=== PATIENT | male | born 1955 | race Caucasian/White ===

== ENCOUNTER 2020-06-11 19:24 | Inpatient (IN) | payer MEDICARE, OTHER ==
[~2020-06-11 19:24] MED LIST: COMBIVENT RESPIM4 GM INH; MEDROL 4MG DOSEP4 MG PO; TAMIFLU 75MG CA75 MG PO
[2020-06-11 20:30] LABS: BASOPHIL 0 % (0-2); EOSINOPHIL 1.5 % (0-7); HCT 26.6 % (42.0-52.0); HGB 8.7 g/dl (13.2-18.0); LYMPHOCYTE 34.3 % (15-48); MCH 32.5 pg (25.0-31.0); MCHC 32.7 g/dL (32.0-36.0); MCV 99.3 fL (78.0-100.0); MPV 9.7 fL (6.0-9.5); NRBC 0; PLT 222 K/uL (150-400); RBC 2.68 M/uL (4.70-6.00); RDW 15.1 % (11.5-14.0)
[2020-06-11 20:33] LABS: WBC 0.7 K/uL (4.0-10.5)
[2020-06-11 20:34] LABS: NEUTROPHIL 59.7 % (41-80)
[2020-06-11 20:40] LABS: ALBUMIN 2.4 g/dL (3.4-5.0); BILIRUBIN - TOTAL 1.3 mg/dL (0.2-1.0); CREATININE 0.88 mg/dL (0.67-1.17); GLOBULIN (CALCULATION) 4.8 g/dL; POTASSIUM 4.1 mmol/L (3.5-5.1); TOTAL PROTEIN 7.2 g/dL (6.4-8.2)
[2020-06-11 21:05] LABS: BILIRUBIN 1+ mg/dL (NEGATIVE); BLOOD NEGATIVE Ery/uL (NEGATIVE); CLARITY CLEAR (CLEAR); COLOR YELLOW (YELLOW); GLUCOSE (U) NORMAL (NORMAL); LEUKOCYTES NEGATIVE Leu/uL (NEGATIVE); NITRITE NEGATIVE (NEGATIVE); PROTEIN TRACE (LOW) mg/dL (NEGATIVE); SPECIFIC GRAVITY 1.025 (1.001-1.030); UROBILINOGEN >=8.0 mg/dL (0.2-1.0)
[2020-06-11 21:17] LABS: PRO-BNP 214 pg/mL (<125)
[2020-06-12 02:28] LABS: BUN/CREAT RATIO (CALC) 17.9 RATIO; CREATININE 0.84 mg/dL (0.67-1.17)
[2020-06-12 06:17] LABS: BUN/CREAT RATIO (CALC) 18.2 RATIO; CREATININE 0.77 mg/dL (0.67-1.17); MAGNESIUM 2.2 mg/dL (1.8-2.4); POTASSIUM 4.1 mmol/L (3.5-5.1)
[2020-06-12 10:00] LABS: BASOPHIL 0 % (0-2); EOSINOPHIL 3.5 % (0-7); HCT 25.5 % (42.0-52.0); HGB 8.1 g/dl (13.2-18.0); LYMPHOCYTE 43.9 % (15-48); MCH 32.3 pg (25.0-31.0); MCHC 31.8 g/dL (32.0-36.0); MCV 101.6 fL (78.0-100.0); MONOCYTE 1.8 % (0-12); MPV 9.6 fL (6.0-9.5); NEUTROPHIL 50.8 % (41-80); NRBC 0; PLT 202 K/uL (150-400); RBC 2.51 M/uL (4.70-6.00); RDW 15.2 % (11.5-14.0); RETICULOCYTE COUNT 0.8 % (1.0-2.0)
[2020-06-12 10:11] LABS: WBC 0.6 K/uL (4.0-10.5)
[2020-06-12 10:21] LABS: IRON % SATURATION 31.1 %SAT (20-50)
[2020-06-12 10:27] LABS: TOTAL CELL COUNT 10
[2020-06-12 10:28] LABS: ANISOCYTOSIS SLIGHT; EOSINOPHIL(M) 10 % (0-7); LYMPHOCYTE(M) 50 % (15-48); NEUTROPHILS(M) 40 % (41-80); PLATELET ESTIMATE NORMAL; PLATELET MORPHOLOGY SATTELLITISM
[2020-06-12 10:54] LABS: ALBUMIN 2.2 g/dL (3.4-5.0); BILIRUBIN - TOTAL 0.6 mg/dL (0.2-1.0); BUN/CREAT RATIO (CALC) 16.9 RATIO; CREATININE 0.77 mg/dL (0.67-1.17); FOLIC ACID (SERUM) 13.2 ng/mL (8.6-58.9); GLOBULIN (CALCULATION) 4.3 g/dL; MAGNESIUM 2.3 mg/dL (1.8-2.4); PHOSPHORUS 2.8 mg/dL (2.6-4.7); TOTAL PROTEIN 6.5 g/dL (6.4-8.2)
--- NOTE | 2020-06-12 16:21 | NUR ---
CALLED [facility] FOR LAB RECORDS, [facility] CALLED BACK TO SAY THEY HAD NO RECORDS SINCE 2019 FOR LABS
[2020-06-13 06:24] LABS: BASOPHIL 0 % (0-2); EOSINOPHIL 3.1 % (0-7); HCT 24.6 % (42.0-52.0); HGB 7.6 g/dl (13.2-18.0); LYMPHOCYTE 54.7 % (15-48); MCH 31.9 pg (25.0-31.0); MCHC 30.9 g/dL (32.0-36.0); MCV 103.4 fL (78.0-100.0); MONOCYTE 1.6 % (0-12); MPV 9.5 fL (6.0-9.5); NEUTROPHIL 40.6 % (41-80); NRBC 0; PLT 209 K/uL (150-400); RBC 2.38 M/uL (4.70-6.00); RDW 15.3 % (11.5-14.0)
[2020-06-13 06:39] LABS: WBC 0.6 K/uL (4.0-10.5)
[2020-06-13 06:46] LABS: TOTAL CELL COUNT 10
[2020-06-13 06:47] LABS: ALBUMIN 2.1 g/dL (3.4-5.0); BILIRUBIN - TOTAL 0.6 mg/dL (0.2-1.0); BUN/CREAT RATIO (CALC) 9.1 RATIO; C-REACTIVE PROTEIN 16.4 mg/dL (<=0.90); CREATININE 0.77 mg/dL (0.67-1.17); GLOBULIN (CALCULATION) 4.1 g/dL; MAGNESIUM 2.3 mg/dL (1.8-2.4); PHOSPHORUS 3.3 mg/dL (2.6-4.7); TOTAL PROTEIN 6.2 g/dL (6.4-8.2)
[2020-06-13 06:50] LABS: NEUTROPHILS(M) 60 % (41-80)
[2020-06-13 06:51] LABS: EOSINOPHIL(M) 10 % (0-7); LYMPHOCYTE(M) 30 % (15-48); PLATELET ESTIMATE NORMAL; PLATELET MORPHOLOGY NORMAL
[2020-06-13 06:57] LABS: PRO-BNP 349 pg/mL (<125)
[2020-06-14 06:47] LABS: BASOPHIL 0 % (0-2); EOSINOPHIL 3.1 % (0-7); HCT 23.8 % (42.0-52.0); HGB 7.3 g/dl (13.2-18.0); LYMPHOCYTE 54.7 % (15-48); MCHC 30.7 g/dL (32.0-36.0); MCV 104.4 fL (78.0-100.0); MONOCYTE 1.6 % (0-12); MPV 9.4 fL (6.0-9.5); NEUTROPHIL 40.6 % (41-80); NRBC 0; PLT 203 K/uL (150-400); RBC 2.28 M/uL (4.70-6.00); RDW 15.2 % (11.5-14.0)
[2020-06-14 07:18] LABS: BAND 6 % (0-10); EOSINOPHIL(M) 2 % (0-7); LYMPHOCYTE(M) 42 % (15-48); NEUTROPHILS(M) 48 % (41-80); PLATELET ESTIMATE NORMAL; TOTAL CELL COUNT 50; VARIANT LYMPHOCYTE 2
[2020-06-14 07:19] LABS: PLATELET MORPHOLOGY NORMAL
[2020-06-14 07:20] LABS: WBC 0.6 K/uL (4.0-10.5)
[2020-06-14 07:23] LABS: ALBUMIN 2.1 g/dL (3.4-5.0); BILIRUBIN - TOTAL 0.7 mg/dL (0.2-1.0); BUN/CREAT RATIO (CALC) 6.6 RATIO; CREATININE 0.76 mg/dL (0.67-1.17); MAGNESIUM 2.1 mg/dL (1.8-2.4); PHOSPHORUS 3.1 mg/dL (2.6-4.7); POTASSIUM 3.8 mmol/L (3.5-5.1); TOTAL PROTEIN 6.1 g/dL (6.4-8.2)
[2020-06-15 05:12] LABS: HCT 23.7 % (42.0-52.0); HGB 7.4 g/dl (13.2-18.0); MCH 31.8 pg (25.0-31.0); MCHC 31.2 g/dL (32.0-36.0); MCV 101.7 fL (78.0-100.0); MPV 10.3 fL (6.0-9.5); RBC 2.33 M/uL (4.70-6.00)
[2020-06-15 05:17] LABS: WBC 0.5 K/uL (4.0-10.5)
[2020-06-15 05:51] LABS: BUN/CREAT RATIO (CALC) 7.2 RATIO; CREATININE 0.69 mg/dL (0.67-1.17); POTASSIUM 3.5 mmol/L (3.5-5.1)
[2020-06-15] MEDS ORDERED: HABITROL14 MG TD (14:15)
[2020-06-15] MEDS ORDERED: AUGMENTIN 875-1 EACH PO (14:27)
[2020-06-28] MEDS ORDERED: ULTRAM50 MG PO (08:28)
== END 2020-06-15 16:45 | disposition home or self-care (01) | DRG 181 ==
LOC: FER 19:24 → FMS 06-12 00:11
PROVIDERS: Hospitalist; Physician Assistant; ADMIT Internal Medicine
DX: C34.90 Malignant neoplasm of unspecified part of unspecified bronchus or lung (principal); C77.1 Secondary and unspecified malignant neoplasm of intrathoracic lymph nodes; D61.818 Other pancytopenia; Z20.822 Contact with and (suspected) exposure to COVID-19; N40.0 Benign prostatic hyperplasia without lower urinary tract symptoms; I10 Essential (primary) hypertension; D70.9 Neutropenia, unspecified; D50.9 Iron deficiency anemia, unspecified; R59.0 Localized enlarged lymph nodes; E86.0 Dehydration; J44.9 Chronic obstructive pulmonary disease, unspecified; F17.210 Nicotine dependence, cigarettes, uncomplicated; Z63.5 Disruption of family by separation and divorce
CPT/HCPCS: 36415; 71045; 71260; 80048; 80053; 81003; 82550; 82607; 82728; 82746; 83010; 83540; 83550; 83605; 83690; 83735; 83880; 84100; 84145; 84484; 85025; 86140; 86880; 93005; 94010; J0696; J1450; J1650; J2405; J2543; J7030; J7050; Q9967; U0002

== ENCOUNTER → 2020-06-28 | Day surgery (SDC) | payer MEDICARE, OTHER ==
[~2020-06-28] MED LIST changes: +AUGMENTIN 875-1 EACH PO; +BACTRIM DS TAB1 EACH PO; +DIFLUCAN 100MG100 MG PO; +HABITROL14 MG TD; +ULTRAM50 MG PO; +ZOVIRAX200 MG PO
[2020-06-28 09:04] LABS: HCT 25.4 % (42.0-52.0); HGB 7.8 g/dl (13.2-18.0); MCH 31.8 pg (25.0-31.0); MCHC 30.7 g/dL (32.0-36.0); MCV 103.7 fL (78.0-100.0); RBC 2.45 M/uL (4.70-6.00); RDW 16.8 % (11.5-14.0)
[2020-06-28 09:18] LABS: WBC 0.5 K/uL (4.0-10.5)
[2020-06-28 09:25] LABS: ALBUMIN 2.1 g/dL (3.4-5.0); BILIRUBIN - TOTAL 0.9 mg/dL (0.2-1.0); CREATININE 0.82 mg/dL (0.67-1.17); GLOBULIN (CALCULATION) 4.5 g/dL; POTASSIUM 4.1 mmol/L (3.5-5.1); TOTAL PROTEIN 6.6 g/dL (6.4-8.2)
== END | disposition home or self-care (01) ==
LOC: FAS 07:37
PROVIDERS: Internal Medicine Hematology & Oncology; Surgery
DX: C91.40 Hairy cell leukemia not having achieved remission (principal); D72.819 Decreased white blood cell count, unspecified; D53.9 Nutritional anemia, unspecified; F17.210 Nicotine dependence, cigarettes, uncomplicated; E78.00 Pure hypercholesterolemia, unspecified; M19.90 Unspecified osteoarthritis, unspecified site; Z98.890 Other specified postprocedural states; Z80.0 Family history of malignant neoplasm of digestive organs; Z20.822 Contact with and (suspected) exposure to COVID-19
CPT/HCPCS: 36415; 80053; 88305; 88341; 88342; J2704; J7120

== ENCOUNTER 2020-07-01 09:49 | Inpatient (IN) | payer MEDICARE, OTHER ==
[~2020-07-01 09:49] MED LIST changes: -BACTRIM DS TAB1 EACH PO; -DIFLUCAN 100MG100 MG PO; -ZOVIRAX200 MG PO
[2020-07-01 10:47] LABS: BASOPHIL 0 % (0-2); EOSINOPHIL 0 % (0-7); HCT 25.2 % (42.0-52.0); HGB 7.8 g/dl (13.2-18.0); LYMPHOCYTE 40.5 % (15-48); MCH 32.2 pg (25.0-31.0); MCV 104.1 fL (78.0-100.0); MONOCYTE 1.4 % (0-12); MPV 10.5 fL (6.0-9.5); NEUTROPHIL 56.7 % (41-80); NRBC 5.4; PLT 202 K/uL (150-400); RBC 2.42 M/uL (4.70-6.00); RDW 17.3 % (11.5-14.0)
[2020-07-01 11:10] LABS: PRO-BNP 287 pg/mL (<125)
[2020-07-01 11:13] LABS: BILIRUBIN - TOTAL 1.3 mg/dL (0.2-1.0); BUN/CREAT RATIO (CALC) 14.7 RATIO; CREATININE 0.95 mg/dL (0.67-1.17); GLOBULIN (CALCULATION) 4.8 g/dL; POTASSIUM 4.5 mmol/L (3.5-5.1); TOTAL PROTEIN 6.8 g/dL (6.4-8.2)
[2020-07-01 11:23] LABS: WBC 0.7 K/uL (4.0-10.5)
[2020-07-01 12:15] LABS: CORONAVIRUS 2019 SARS-COV-2 NEGATIVE (NEGATIVE); INFLUENZA A NAA NEGATIVE (NEGATIVE)
[2020-07-01] MEDS ORDERED: ZOVIRAX200 MG PO (15:16)
[2020-07-01] MEDS ORDERED: BACTRIM DS TAB1 EACH PO (15:17)
[2020-07-01] MEDS ORDERED: DIFLUCAN 100MG100 MG PO (15:19)
[2020-07-02 00:26] LABS: BILIRUBIN NEGATIVE (NEGATIVE); BLOOD NEGATIVE Ery/uL (NEGATIVE); CLARITY CLEAR (CLEAR); COLOR YELLOW (YELLOW); GLUCOSE (U) NORMAL (NORMAL); LEUKOCYTES NEGATIVE Leu/uL (NEGATIVE); NITRITE NEGATIVE (NEGATIVE); PROTEIN NEGATIVE (NEGATIVE)
[2020-07-02 06:15] LABS: BASOPHIL 0 % (0-2); EOSINOPHIL 3.6 % (0-7); HCT 19.6 % (42.0-52.0); MCH 31.9 pg (25.0-31.0); MCHC 30.6 g/dL (32.0-36.0); MCV 104.3 fL (78.0-100.0); MONOCYTE 3.6 % (0-12); MPV 10.2 fL (6.0-9.5); NEUTROPHIL 42.8 % (41-80); NRBC 0; PLT 133 K/uL (150-400); RBC 1.88 M/uL (4.70-6.00); RDW 17.2 % (11.5-14.0)
[2020-07-02 06:20] LABS: WBC 0.3 K/uL (4.0-10.5)
[2020-07-02 07:05] LABS: CREATININE 0.64 mg/dL (0.67-1.17); POTASSIUM 3.8 mmol/L (3.5-5.1)
--- NOTE | 2020-07-02 09:58 | NUR ---
PT REPORTS HE LIVES WITH SON AND SONS GIRLFRIEND (ETIENNE) HE REPORTS HE HAS A CANE, WALKER AND W/C. HE DID NOT APPEAR INTERESTED IN CONVERSATION ABOUT DISCHARGE PLANS OR NEEDS, HE MADE NO EYE CONTACT HAD YES OR NO ANSWEARS WHEN ASKED ABOUT DME I HAD TO ASK EACH PIECE OF EQUIPMENT AND HE WOULD SAY YES OR NO. HE DID SAY IT WAS OK TO TALK UPON ENTERING ROOM. I WENT TO SPEAK TO NURSING TO SEE IF I WAS MISSING SOMETHING I FEEL LIKE HOME HEALTH WOULD BE A NEED FOR HIM BUT HE DECLINED IT. NURSING SAID HE HAS BEEN VERY SHORT WITH THEM WELL I DID ASK THEM IF SOMETHING CHANGES OR IF HE CHANGES HIS MIND OR BECOMES MORE ENGAGED IN CARE I WOULD BE HAPPY TO COME AND TALK TO HIM AGAIN;
[2020-07-02 15:10] LABS: LYME IGG/IGM AB <0.91 ISR (0.00-0.90)
[2020-07-03 03:51] LABS: BASOPHIL 0 % (0-2); EOSINOPHIL 3.3 % (0-7); HCT 24.3 % (42.0-52.0); HGB 7.6 g/dl (13.2-18.0); LYMPHOCYTE 43.3 % (15-48); MCH 30.5 pg (25.0-31.0); MCHC 31.3 g/dL (32.0-36.0); MCV 97.6 fL (78.0-100.0); MONOCYTE 3.3 % (0-12); MPV 9.8 fL (6.0-9.5); NEUTROPHIL 40.1 % (41-80); NRBC 6.7; PLT 117 K/uL (150-400); RBC 2.49 M/uL (4.70-6.00); RDW 19.1 % (11.5-14.0)
[2020-07-03 03:58] LABS: WBC 0.3 K/uL (4.0-10.5)
[2020-07-03 04:12] LABS: BUN/CREAT RATIO (CALC) 15.3 RATIO; CREATININE 0.59 mg/dL (0.67-1.17); POTASSIUM 3.6 mmol/L (3.5-5.1)
[2020-07-04 05:59] LABS: BASOPHIL 0 % (0-2); EOSINOPHIL 0 % (0-7); HCT 23.4 % (42.0-52.0); HGB 7.4 g/dl (13.2-18.0); LYMPHOCYTE 44.4 % (15-48); MCH 30.8 pg (25.0-31.0); MCHC 31.6 g/dL (32.0-36.0); MCV 97.5 fL (78.0-100.0); MONOCYTE 3.7 % (0-12); MPV 9.9 fL (6.0-9.5); NEUTROPHIL 51.9 % (41-80); NRBC 0; PLT 110 K/uL (150-400); RDW 19.3 % (11.5-14.0)
[2020-07-04 06:02] LABS: WBC 0.3 K/uL (4.0-10.5)
[2020-07-04 06:21] LABS: BUN/CREAT RATIO (CALC) 12.7 RATIO; CREATININE 0.55 mg/dL (0.67-1.17); POTASSIUM 3.3 mmol/L (3.5-5.1)
[2020-07-05 15:09] LABS: E. CHAFFEENSIS (HME) IGG TITER Negative (Neg:<1:64); E. CHAFFEENSIS (HME) IGM TITER Negative (Neg:<1:20); HGE IGG TITER Negative (Neg:<1:64); HGE IGM TITER Negative (Neg:<1:20)
[2020-07-06 06:03] LABS: BASOPHIL 0 % (0-2); EOSINOPHIL 0 % (0-7); HCT 21.5 % (42.0-52.0); HGB 6.9 g/dl (13.2-18.0); LYMPHOCYTE 35.5 % (15-48); MCH 31.7 pg (25.0-31.0); MCHC 32.1 g/dL (32.0-36.0); MCV 98.6 fL (78.0-100.0); MONOCYTE 3.2 % (0-12); MPV 10.4 fL (6.0-9.5); NEUTROPHIL 54.8 % (41-80); PLT 101 K/uL (150-400); RBC 2.18 M/uL (4.70-6.00); RDW 18.4 % (11.5-14.0)
[2020-07-06 06:19] LABS: WBC 0.3 K/uL (4.0-10.5)
[2020-07-06 06:24] LABS: ALBUMIN 1.3 g/dL (3.4-5.0); BILIRUBIN - TOTAL 0.9 mg/dL (0.2-1.0); BUN/CREAT RATIO (CALC) 14.5 RATIO; CREATININE 0.62 mg/dL (0.67-1.17); MAGNESIUM 1.8 mg/dL (1.8-2.4); POTASSIUM 3.8 mmol/L (3.5-5.1); TOTAL PROTEIN 5.3 g/dL (6.4-8.2)
[2020-07-06 06:35] LABS: EOSINOPHIL(M) 5 % (0-7); LYMPHOCYTE(M) 45 % (15-48); NEUTROPHILS(M) 40 % (41-80); NRBC 0; PLATELET ESTIMATE DECREASED; TOTAL CELL COUNT 20; VARIANT LYMPHOCYTE 10
[2020-07-06 06:36] LABS: ANISOCYTOSIS SLIGHT; PLATELET MORPHOLOGY NORMAL
--- NOTE | 2020-07-06 11:55 | NUR ---
07/06/20 1000 ORDER RECEIVED FOR PICC LINE PLACEMENT. RISKS AND BENEFITS EXPLAINED. CONSENT SIGNED. PT'S LEFT UPPER ARM BASILIC VEIN VISUALIZED USING THE SITE RITE 6 ULTRA MACHINE. PT THEN PREPPED AND DRAPED IN STERILE FASHION. THE AREA WAS CLEANSED WITH CHLORAPREP. THE AREA WAS NUMBED WITH 1CC OF 1% LIDOCAINE. A 21GA NEEEDLE WAS USED. GOOD BLOOD RETURN. THE GUIDE WIRE THREADED EASILY. THE NEEDLE WAS REMOVED AND THE SHEATH WAS PLACED OVER THE WIRE. THE WIRE WAS THEN REMOVE AND A CAP WAS PLACED ON THE END. THE PT WAS MEASURED FOR THE PICC PLACEMENT. PICC WAS TRIMMED AT 40 CM AND FLUSHED. THE INTRODUCER WAS REMOVED AND THE PICC CATHETER WAS GUIDED INTO POSITION. THE SHEATH WAS PEELED BACK. A STERILE BIOPATCH WAS PLACED AT THE INSERTION SITE. A STAT LOCK WAS PLACED ON. A STERILE TEGADERM WAS PLACED OVER THE PICC LINE. A STAT PORTABLE CHEST XRAY WAS OBTAINED. PER DR GOMEZ THE PICC LINE IS IN THE SVC. THE STYLET WAS REMOVED AND THE A CLEAR CAP WAS FLUSHED AND PLACED ON THE END. PT HAS A 4 FR SINGLE LUMEN POWER PICC. TRIMMED AT 40 CM, INSERTION 0 CM, BICEPS 33CM. GOOD BLOOD RETURN NOTED. PT TOLERATED WELL. REPORT TO Adis YI RN ON MED SURG.
--- NOTE | 2020-07-06 13:24 | NUR ---
1150 ENTRY LEVEL MARKETING REPRESENTATIVE REPORTS V/S ARE FOLLOW 137/98, HR 132, RESP 40, TEMP 97.3 PATIENT SHAKING SOME MUCH UNABLE TO GET AN O2 SAT. [address] GOMEZ OF THE INCREASED HEARTRATE. NEW ORDERS TO GET A STAT EKG AND PLACE ON TELEMTRY. 1200 EKG DONE HEART RATE 163, TELEMTERY MONITOR [address] DR[address] GOMEZ NOTIFED AGAIN. PLACE ON THE DEFILLBATOR AND PADS ATTACHED TO THE CHEST PRIOR TO GIVING THE ADENOSINE AT THE BEDSIDE. DR. GOMEZ AT THE BEDSIDE AT THIS TIME. NEW ORDERS TO GIVE ADENOSINE IV IN THE ROOM AND TRANSFER TO ICU. 1220 1ST DOSE OF ADENOSINE 6MG IV WAS GIVEN, HR DROPPED FOR ABOUT A SECOND AND JUMP BACK UP TO 155-160. 1222 2ND DOSE OF ADENOSINE 12MG IV WAS GIVEN HEART RATE 92 FOR A SECOND THEN RETURNED TO 159-167. 1225 3RD DOSE OF ADENOSINE 12MG IV WAS GIVEN HEART RATE 110 THEN RETURNED TO 160-170. RAPID RESPONSE CALLED. 1224 B/P 130/98 HR 148 SHAKING HAS SLOWWED DOWN. 1225 B/P RECHECK 128/78 HEART RATE 114 FOR SEVERAL SECONDS THEN RETURNED TO 170. 1229 AMINODARON 150MG IV PUSH WAS GIVEN X 1 HEART RATE 156. 1230 B/P 120/72, HR 152, RESP 32 ON 3L NC 1232 LOPRESSOR 5MG IV WAS GIVEN HEART RATE IN LOW 100'S, STARTING TO MOVE OVER TO ICU. 1233 TANSFER TO ICU 1238 AMINODARON 150MG BOLUS WAS GIVEN OVER IN THE ICU. HEART RATE IS NOW 110-120. 1259 REPORT WAS GIVEN TO DARNELL LORENZO,RN
[2020-07-06 13:31] LABS: BASOPHIL 0 % (0-2); EOSINOPHIL 2.6 % (0-7); HGB 7.6 g/dl (13.2-18.0); LYMPHOCYTE 31.6 % (15-48); MCH 30.8 pg (25.0-31.0); MCHC 31.7 g/dL (32.0-36.0); MCV 97.2 fL (78.0-100.0); MONOCYTE 2.6 % (0-12); MPV 10.4 fL (6.0-9.5); NEUTROPHIL 63.2 % (41-80); NRBC 5.3; PLT 97 K/uL (150-400); RBC 2.47 M/uL (4.70-6.00); RDW 17.9 % (11.5-14.0)
[2020-07-06 13:34] LABS: WBC 0.4 K/uL (4.0-10.5)
[2020-07-06 13:39] LABS: IRON % SATURATION 41.6 %SAT (20-50)
[2020-07-06 13:46] LABS: PRO-BNP 616 pg/mL (<125)
[2020-07-06 14:07] LABS: ALBUMIN 1.4 g/dL (3.4-5.0); BILIRUBIN - TOTAL 1.1 mg/dL (0.2-1.0); CREATININE 0.63 mg/dL (0.67-1.17); GLOBULIN (CALCULATION) 4.2 g/dL; MAGNESIUM 1.8 mg/dL (1.8-2.4); PHOSPHORUS 3.5 mg/dL (2.6-4.7); TOTAL PROTEIN 5.6 g/dL (6.4-8.2)
--- NOTE | 2020-07-06 15:14 | NUR ---
07/06/20 Mr. Robledo and his sister, Nette Hammonds, report plans for Mr. Robledo to go to the home of his daughter, Mackenzie Robledo ([phone]) with at discharge. Mr. Rboledo chose [facility]. Affliation explained. A referral was made to [facility] via [facility]. - Report given to Perri WARP CLAMPER
[2020-07-06 18:10] LABS: HISTOPLASMA GAL'MANNAN AG SER <0.5 (<0.5 ng/mL)
[2020-07-07 04:57] LABS: BASOPHIL 0 % (0-2); EOSINOPHIL 0 % (0-7); HCT 25.5 % (42.0-52.0); HGB 8.1 g/dl (13.2-18.0); LYMPHOCYTE 39.3 % (15-48); MCH 30.8 pg (25.0-31.0); MCHC 31.8 g/dL (32.0-36.0); MONOCYTE 3.6 % (0-12); MPV 10.3 fL (6.0-9.5); NEUTROPHIL 57.1 % (41-80); PLT 81 K/uL (150-400); RBC 2.63 M/uL (4.70-6.00); RDW 18.8 % (11.5-14.0)
[2020-07-07 05:00] LABS: WBC 0.3 K/uL (4.0-10.5)
[2020-07-07 05:14] LABS: BUN/CREAT RATIO (CALC) 16.9 RATIO; CREATININE 0.65 mg/dL (0.67-1.17); MAGNESIUM 1.8 mg/dL (1.8-2.4); POTASSIUM 3.4 mmol/L (3.5-5.1)
[2020-07-07 05:22] LABS: PRO-BNP 622 pg/mL (<125)
[2020-07-07 05:43] LABS: BAND 24 % (0-10); LYMPHOCYTE(M) 40 % (15-48); MONOCYTE(M) 8 % (0-12); NEUTROPHILS(M) 28 % (41-80); TOTAL CELL COUNT 25
[2020-07-07 05:45] LABS: PLATELET ESTIMATE DECREASED; PLATELET MORPHOLOGY NORMAL
[2020-07-07 05:46] LABS: ANISOCYTOSIS SLIGHT; TARGET CELLS RARE
--- NOTE | 2020-07-07 13:30 | NUR ---
PATIENT WITH SEVERE CHILLS, TREMORING, TACYPNIC WITH AUDIBLE WHEEZES. RECTAL TEMP 100.8. HR 140'S. AT BEDSIDE. RT AT BEDSIDE TO GIVE XOPENEX TREATMENT AND EKG. 1430: TEMP 103.6 RECTAL ON RE-CHECK
[2020-07-07 17:11] LABS: FRANCISELLA TULARENSIS IGG Negative (Negative); FRANCISELLA TULARENSIS IGM Negative (Negative)
--- NOTE | 2020-07-08 15:33 | NUR ---
07/08/20 [facility] was informed of patient's transfer to [facility] on 07/07/20.
== END 2020-07-07 22:30 | disposition other institution (70) | DRG 871 ==
LOC: FER 09:49 → FICU 11:35 → FTCU 11:35 → FMS 07-04 09:11 → FICU 07-06 13:07
PROVIDERS: Emergency Medicine; Internal Medicine; ADMIT Internal Medicine
PROC: 8E0ZXY6 Isolation (ICD-10-PCS; 2020-07-01)
PROC: 30233N1 Transfusion of Nonautologous Red Blood Cells into Peripheral Vein, Percutaneous Approach (ICD-10-PCS; principal; 2020-07-02)
PROC: 02HV33Z Insertion of Infusion Device into Superior Vena Cava, Percutaneous Approach (ICD-10-PCS; 2020-07-06)
DX: A41.9 Sepsis, unspecified organism (principal); J18.9 Pneumonia, unspecified organism; J96.01 Acute respiratory failure with hypoxia; C91.40 Hairy cell leukemia not having achieved remission; I47.1 Supraventricular tachycardia; A77.0 Spotted fever due to Rickettsia rickettsii; J44.0 Chronic obstructive pulmonary disease with (acute) lower respiratory infection; D84.9 Immunodeficiency, unspecified; R59.1 Generalized enlarged lymph nodes; D70.3 Neutropenia due to infection; R50.81 Fever presenting with conditions classified elsewhere; R23.3 Spontaneous ecchymoses; Z20.822 Contact with and (suspected) exposure to COVID-19; F17.210 Nicotine dependence, cigarettes, uncomplicated; F41.9 Anxiety disorder, unspecified; E78.00 Pure hypercholesterolemia, unspecified; M19.90 Unspecified osteoarthritis, unspecified site; Z87.440 Personal history of urinary (tract) infections; I10 Essential (primary) hypertension; I95.9 Hypotension, unspecified
CPT/HCPCS: 36415; 36430; 36600; 71045; 71260; 80048; 80053; 80202; 81003; 82607; 82803; 83540; 83550; 83605; 83735; 83880; 84100; 84145; 84484; 85025; 86618; 86666; 86757; 86850; 86900; 86901; 86922; 87040; 87070; 87088; 87205; 87385; 88305; 88341; 88342; 93005; 94640; 94667; 94668; C1751; J0153; J0282; J0610; J0692; J1447; J1642; J1650; J1956; J2185; J2704; J2930; J3370; J7030; J7040; J7050; J7060; J7120; P9016; Q9967; U0002